=== PATIENT | female | born 1985 | race Caucasian/White ===

== ENCOUNTER 2023-02-25 14:32 | Emergency (ER) | payer BC ==
[2023-02-25] MEDS ORDERED: SODIUM CHLORIDE 0.9% 500 ML INFUS.BAG IV ONE (14:57)
[2023-02-25] MEDS ORDERED: ONDANSETRON 4 MG/2 ML VIAL IVPUSH ONE (14:57)
[2023-02-25 15:04] VITALS: BP 120/64; PULSE 90; RESP 18; TEMP 99.1; BMI 17.4
[2023-02-25] MEDS ORDERED: ONDANSETRON 4 MG/2 ML VIAL ONE (15:26)
[2023-02-25 15:58] LABS: HEMATOCRIT 33.4 % (32.4-45.2); HEMOGLOBIN 11.4 G/dL (10.7-15.3); MCH 28.4 pg (25.7-33.7); MEAN CELL VOLUME 83.4 fl (80-96); MEAN PLT VOLUME 8.1 fl (7.5-11.1); PLATELET COUNT 164.8 10^3/uL (134-434); RDW 15.4 % (11.6-15.6); WHITE BLOOD COUNT 4.5 10^3/uL (4.0-10.8)
[2023-02-25 16:06] LABS: HCG,QUALITATIVE URINE Positive
[2023-02-25 16:13] LABS: PLATELET ESTIMATE ADEQUATE
[2023-02-25 16:16] LABS: EPITHELIAL CELLS 0-5 /hpf
[2023-02-25 16:27] LABS: ALBUMIN 4.2 g/dl (3.4-5.0); BILIRUBIN,TOTAL 0.4 mg/dl (0.2-1); CREATININE 0.6 mg/dl (0.6-1.3); POTASSIUM 3.4 mmol/L (3.5-5.1); TOT PROT 6.5 g/dl (6.4-8.2)
== END 2023-02-25 18:00 | disposition home or self-care (01) ==
LOC: FER 14:32
PROC: 3E033GC Introduction of Other Therapeutic Substance into Peripheral Vein, Percutaneous Approach (ICD-10-PCS; principal; 2023-02-25)
DX: O21.0 Mild hyperemesis gravidarum (principal); Z3A.11 11 weeks gestation of pregnancy; Z20.822 Contact with and (suspected) exposure to COVID-19
CPT/HCPCS: 0241U-QW; 36415; 80053; 81003; 81015; 83690; 84703; 85027; 99284-25

== ENCOUNTER 2023-06-01 17:36 | Emergency (ER) | payer BC ==
[2023-06-01 17:46] VITALS: BP 102/55; PULSE 99; RESP 18; TEMP 99.5
[2023-06-01] MEDS ORDERED: ACETAMINOPHEN 500 MG TABLET (FP) ONE (18:16)
[2023-06-01] MEDS: ACETAMINOPHEN 500 MG TABLET (FP) PO ONE (18:17)
[2023-06-01 19:24] LABS: THROAT:GRP A STREP DETECTED (NOTDETECTED)
[2023-06-01] MEDS: PENICILLIN V POTASSIUM 500 MG TABLET PO ONE (20:23)
== END 2023-06-01 20:24 | disposition home or self-care (01) ==
LOC: FER 17:36
DX: R05.9 Cough, unspecified (principal); J02.0 Streptococcal pharyngitis; R09.81 Nasal congestion; R51.9 Headache, unspecified; R06.02 Shortness of breath; Z20.822 Contact with and (suspected) exposure to COVID-19
CPT/HCPCS: 0241U-QW; 87070; 87651; 99283-25